=== PATIENT | female | born 1960 | race Caucasian/White ===

== ENCOUNTER → 2022-01-03 | Day surgery (SDC) | payer OTHER ==
[~2022-01-03] VITALS: Ht 165.1 cm; Wt 94.8 kg
[~2022-01-03] MED LIST: CLONAZEPAM0.5 MG PO; COLACE100 MG PO; ELAVIL25 MG PO; FIORICET1 EACH PO; LIPITOR20 MG PO; VITAMIN D3 PO; [UNRECOGNIZED DRUG - OTHER] PO
[2022-01-03 07:59] LABS: HCT 47.4 % (37.0-47.0); HGB 15.8 g/dl (12.5-16.0); MCH 28.8 pg (25.0-31.0); MCHC 33.3 g/dL (32.0-36.0); MCV 86.3 fL (78.0-100.0); MPV 9.7 fL (6.0-9.5); RBC 5.49 M/uL (4.20-5.40); RDW 12.3 % (11.5-14.0)
[2022-01-03 08:19] LABS: ALBUMIN 4.5 g/dL (3.4-5.0); BILIRUBIN - TOTAL 0.7 mg/dL (0.2-1.0); BUN/CREAT RATIO (CALC) 19.7 RATIO; CREATININE 0.76 mg/dL (0.51-0.95); GLOBULIN (CALCULATION) 3.6 g/dL; POTASSIUM 3.5 mmol/L (3.5-5.1); TOTAL PROTEIN 8.1 g/dL (6.4-8.2)
== END | disposition home or self-care (01) ==
LOC: FAS 07:33
PROVIDERS: Surgery
DX: K58.0 Irritable bowel syndrome with diarrhea (principal); K92.1 Melena; R12 Heartburn; K57.30 Diverticulosis of large intestine without perforation or abscess without bleeding; K63.89 Other specified diseases of intestine; E78.5 Hyperlipidemia, unspecified; Z80.0 Family history of malignant neoplasm of digestive organs
CPT/HCPCS: 36415; 80053; J1610; J2405; J2704; J7120